=== PATIENT | male | born 1990 | race African-American/Black ===

== ENCOUNTER 2020-07-31 20:56 | Emergency (ER) | payer OTHER, SELFPAY ==
[2020-07-31 21:04] VITALS: BP 174/103; PULSE 74; RESP 18; TEMP 36.4; O2SAT 100
--- NOTE | 2020-07-31 21:16 | ED.GENADULT ---
HPI - General Adult General Chief complaint: Unspecified Stated complaint: back pain Time Seen by Provider: 07/31/20 21:11 History of Present Illness HPI narrative: Patient a 30-year-old gentleman who presents the emergency department with chief complaint of body aches. The patient states that he has had some aching in his back and is concerned that he may have had COVID-19 exposure. Patient states that previously he has been tested for Covid with rapid test that have been negative states that he wants the longer test to be sure this is on review with. Related Data Allergies Allergy/AdvReac Type Severity Reaction Status Date / Time No Known Allergies Allergy Unverified 04/16/18 22:18 Review of Systems Review of Systems: Narrative: CONSTITUTIONAL: Denies fever, chills, or sweats. EYES: Denies visual changes, redness, or discharge. ENT: Denies rhinorrhea, congestion, sore throat, or otalgia. CARDIOVASCULAR: Denies chest pain, palpitations, or edema. RESPIRATORY: Denies cough or dyspnea. GASTROINTESTINAL: Denies abdominal pain, nausea, vomiting, or diarrhea. GENITOURINARY: Denies dysuria or hematuria. SKIN: Denies rash or itching. MUSCULOSKELETAL: Denies back pain, joint pain, or myalgia. NEUROLOGIC: Denies headache, numbness, or weakness. PSYCHIATRIC: Denies anxiety or depression. A 10 system review of systems was completed on the patient and is negative except for what is stated in the HPI. Nursing and ancillary documentation was reviewed. PMFSH Comments Patient denies past medical history denies illicit drug use Exam Narrative: Exam Narrative: GENERAL: Well-appearing, well-nourished, and in no acute distress. HEAD: Normocephalic, atraumatic. EYES: PERRLA and EOMI. ENT: Nares clear, no rhinorrhea or epistaxis. Mucous membranes moist. NECK: Supple. CHEST: Clear to auscultation. No respiratory distress. HEART: Regular rate and rhythm. No murmur heard. Normal peripheral pulses. ABDOMEN: Soft, nontender, nondistended, normal active bowel sounds. EXTREMITIES: Normal range of motion. No edema. SKIN: Warm, dry, no rash. NEURO: No focal deficits. Alert and oriented x3. PSYCH: Normal mood and affect. Course Vital Signs Vital signs: Vital Signs Temperature 36.4 C L 07/31/20 21:04 Pulse Rate 74 07/31/20 21:04 Respiratory Rate 18 07/31/20 21:04 Blood Pressure 174/103 H 07/31/20 21:04 Pulse Oximetry 100 07/31/20 21:04 Temperature 36.4 C L 07/31/20 21:04 Pulse Rate 74 07/31/20 21:04 Respiratory Rate 18 07/31/20 21:04 Blood Pressure 174/103 H 07/31/20 21:04 Pulse Oximetry 100 07/31/20 21:04 Medical Decision Making Vital Signs Vital Signs: Vital Signs Temperature 36.4 C L 07/31/20 21:04 Pulse Rate 74 07/31/20 21:04 Respiratory Rate 18 07/31/20 21:04 Blood Pressure 174/103 H 07/31/20 21:04 Pulse Oximetry 100 07/31/20 21:04 Temperature 36.4 C L 07/31/20 21:04 Pulse Rate 74 07/31/20 21:04 Respiratory Rate 18 07/31/20 21:04 Blood Pressure 174/103 H 07/31/20 21:04 Pulse Oximetry 100 07/31/20 21:04 Discharge Plan Discharge Clinical Impression: Body aches Patient Disposition: Home, Self-Care Condition: Stable Instructions: Antibiotic Form, Viral Syndrome (ED) Additional Instructions: Please self quarantine until the results of your Covid test Follow-up/Referrals: PHYSICIAN,WASHING TUB OPERATOR [Primary Care Provider] - Chuck Aquino MD [Physician] - 1 Week Time of Disposition: 21:20
[2020-08-02 11:58] LABS: SARS-CoV-2 RNA PCR Negative
== END 2020-07-31 21:46 | disposition home or self-care (01) ==
LOC: ANHED 21:32
PROVIDERS: Emergency Provider Emergency Medicine
DX: M54.9 Dorsalgia, unspecified (principal); Z20.828 Contact with and (suspected) exposure to other viral communicable diseases
CPT/HCPCS: 87635; 99283; C9803; U0003

== ENCOUNTER 2024-03-12 15:23 | Emergency (ER) | payer BC, SELFPAY ==
[2024-03-12 15:44] VITALS: BP 152/104; PULSE 91; RESP 20; TEMP 36.6; O2SAT 100
[2024-03-12 15:45] VITALS: BP 152/104; PULSE 91; RESP 20; TEMP 36.6; O2SAT 100
--- NOTE | 2024-03-12 15:57 | ED.URI ---
HPI - URI/Sore Throat General Chief Complaint: Upper Respiratory Infection Stated Complaint: throat sore Time Seen by Provider: 03/12/24 15:46 Source: patient and RN notes reviewed Mode of arrival: ambulatory Limitations: no limitations History of Present Illness HPI Narrative: Patient presents today complaining of a 2 day history of sore throat with occasional cough. Denies any other symptoms include fever, congestion, rhinorrhea, headache. Currently rates his pain 7/10 and has been using TheraFlu and cough drops with some relief. Related Data Home Medications Medication Instructions Recorded Confirmed No Home Medications 03/12/24 03/12/24 Allergies Allergy/AdvReac Type Severity Reaction Status Date / Time shellfish derived Allergy Swelling Verified 03/12/24 15:45 Review of Systems Review of Systems: CONSTITUTIONAL: Denies body aches, fever, chills, or sweats. EYES: Denies visual changes, redness, or discharge. ENT: Denies rhinorrhea, congestion, or otalgia.+ sore throat CARDIOVASCULAR: Denies chest pain, palpitations, or edema. RESPIRATORY: Denies dyspnea.+ occasional cough GASTROINTESTINAL: Denies abdominal pain, nausea, vomiting, or diarrhea. GENITOURINARY: Denies dysuria or hematuria. SKIN: Denies rash, itching, or wounds. MUSCULOSKELETAL: Denies back pain, joint pain, or myalgia. NEUROLOGIC: Denies headache, numbness, tingling, or weakness. PSYCH: Denies depression or anxiety. PMFSH Comments At time of signature, I have reviewed and agree with nursing past medical, surgical, social and family history unless otherwise noted. Please see nursing chart for further information. There is no relevant family history pertinent to the presenting complaint Exam Narrative: GENERAL: Well-appearing, well-nourished, and in no acute distress. HEAD: Normocephalic, atraumatic. EYES: EOMI. No redness or drainage. Conjunctivae normal. ENT: Mucous membranes pink and moist. Nares clear. No rhinorrhea. TMs normal bilaterally. Throat mildly erythematous without edema or exudate. Uvula midline. NECK: Normal AROM. Supple. No lymphadenopathy. CHEST: No respiratory distress. Clear to auscultation. HEART: Regular rate and rhythm. No murmur appreciated. EXTREMITIES: Normal range of motion. No edema. SKIN: Warm, dry, no rash. Capillary refill normal. Normal skin turgor. NEURO: No focal deficits. Alert and oriented x3. Gait steady. PSYCH: Normal affect. No signs of depression or anxiety. Course Course Level of Care: Express Care Visit Vital Signs Vital signs: Vital Signs Temperature 97.9 F 03/12/24 15:44 Pulse Rate 91 03/12/24 15:44 Respiratory Rate 20 03/12/24 15:44 Blood Pressure 152/104 H 03/12/24 15:44 Pulse Oximetry 100 03/12/24 15:44 Oxygen Delivery Room Air 03/12/24 15:44 Temperature 97.9 F 03/12/24 15:45 Pulse Rate 91 03/12/24 15:45 Respiratory Rate 20 03/12/24 15:45 Blood Pressure 152/104 H 03/12/24 15:45 Pulse Oximetry 100 03/12/24 15:45 Oxygen Delivery Room Air 03/12/24 15:45 Reviewed MDM - URI/Sore Throat MDM Narrative Medical decision making narrative: Rapid strep negative. Culture pending. Symptoms likely viral in etiology. Discussed [id number] medication use and duration of illness. Anticipatory guidance given. Differential Diagnosis Differential diagnosis: Likely upper respiratory infection, pharyngitis and other (Strep throat) Lab Data Attestation: I reviewed the patient's lab results. Lab results narrative: Rapid strep negative. Critical Care Time Critical Care Time Critical Care Time: No Discharge Plan Discharge Clinical Impression: Pharyngitis Qualifiers: Pharyngitis/tonsillitis etiology: unspecified etiology Qualified Code(s): J02.9 - Acute pharyngitis, unspecified Patient Disposition: Home, Self-Care Condition: Stable Instructions: Pharyngitis (ED) Additional Instructions: Your rapid strep swab was
[2024-03-12 16:06] LABS: EDSTREPNEGPOS1 Presumptive Negative
== END 2024-03-12 16:01 | disposition home or self-care (01) ==
PROVIDERS: Emergency Provider Nurse Practitioner; PCP Physician Assistant
DX: J02.9 Acute pharyngitis, unspecified (principal)
CPT/HCPCS: 87081; 87880; 99213; G0463